=== PATIENT | male | born 2000 | race Two or more races ===

== ENCOUNTER 2022-05-21 11:57 | Emergency (ER) | payer MEDICAID, OTHER ==
[2022-05-21] MEDS: BENZOCAINE (DENTAL) 20 % SPRAY 60ML MT ONE (15:25)
[2022-05-21 15:32] VITALS: BP 150/90
== END 2022-05-21 15:40 | disposition home or self-care (01) ==
LOC: ER 11:57
DX: S02.5XXA Fracture of tooth (traumatic), initial encounter for closed fracture (principal); F17.210 Nicotine dependence, cigarettes, uncomplicated; X58.XXXA Exposure to other specified factors, initial encounter; Y93.89 Activity, other specified; Y92.89 Other specified places as the place of occurrence of the external cause; Y99.8 Other external cause status